=== PATIENT | female | born 1965 | race Caucasian/White ===

== ENCOUNTER 2017-02-08 12:31 | Day surgery (SDC) | payer BC ==
[~2017-02-08 12:31] MED LIST: Buffered Lidocaine 0.9% SYRIN* 5 ML/SYR SYRINGE INTRADERM ONE; Famotidine IV* 10 MG/ML 2 ML (20 mg) IV ONE; Metoclopramide TAB* 10 MG PO ONE
[2017-02-08] MEDS ORDERED: Buffered Lidocaine 0.9% SYRIN* 5 ML/SYR SYRINGE ONE (12:45)
[2017-02-08] MEDS ORDERED: ceFAZolin 2 GM PREMIX (*) 2 GM/50 ML BAG IVPB ONE (12:45)
[2017-02-08] MEDS ORDERED: Metoclopramide TAB* 10 MG ONE (12:45)
[2017-02-08] MEDS ORDERED: Famotidine IV* 10 MG/ML 2 ML (20 mg) ONE (12:45)
[2017-02-08] MEDS ORDERED: Gentamicin ADULT (*) 40 MG/ML VIAL ONE (13:27)
[2017-02-08] MEDS ORDERED: Dexamethasone IV* 4 MG/ML 1 ML (4 MG) ONE (13:27)
[2017-02-08] MEDS ORDERED: Lidocaine 2% PF * 5 ML VIAL ONE (13:27)
[2017-02-08] MEDS ORDERED: Vancomycin(*) 1,000 MG VIAL ONE (13:27)
[2017-02-08] MEDS ORDERED: Propofol* 10 MG/ML 20 ML BTL IV PUSH ONE (13:27)
[2017-02-08] MEDS ORDERED: Lidocaine 1% INJ* 10 MG/ML 30 ML SDV ONE (13:27)
[2017-02-08] MEDS ORDERED: Ondansetron INJ* 2 MG/ML VIAL ONE ×2 (13:27→16:22)
[2017-02-08] MEDS ORDERED: Midazolam* 1 MG/ML 10 ML VIAL (10 MG) ONE (13:27)
[2017-02-08] MEDS ORDERED: KETAMINE HCL* 50 MG/ML 10 ML VIAL ONE (13:27)
[2017-02-08] MEDS ORDERED: fentaNYL* 50 MCG/ML 2 ML VIAL (100 MCG VIAL) ONE (13:27)
[2017-02-08] MEDS ORDERED: Bacitracin IV* 50,000 UNITS INJ ONE (13:28)
[2017-02-08] MEDS ORDERED: Bupivacaine 0.25% SDV* 30 ML ONE (13:28)
[2017-02-08] MEDS ORDERED: ceFAZolin 1 GM VIAL(*) ONE (13:28)
[2017-02-08] MEDS ORDERED: Ketorolac INJ* 30 MG/ML 1 ML VIAL ONE (15:46)
[2017-02-08] MEDS ORDERED: Ondansetron INJ* 2 MG/ML VIAL IV PRN (16:34)
[2017-02-08] MEDS ORDERED: Acetaminophen IV 1GM/100ML * 1,000 MG/100 ML VIAL IVPB ONE (16:34)
[2017-02-08 16:57] VITALS: BP 123/83
--- NOTE | 2017-02-09 00:36 | OP ---
DATE OF OPERATION: 02/08/17 [facility] DATE OF : 63 SURGEON: Mina Hutchison MD OBSTETRICS SCRUB NURSE: None. ANESTHESIA: Local MAC. PRE-OP DIAGNOSIS: Failed back syndrome. POST-OP DIAGNOSIS: Failed back syndrome. OPERATIVE PROCEDURE: Dorsal column stimulator IPG battery change to the Nevro IPG system. INDICATIONS: The patient is a 52-year-old female with history of failed back syndrome, who has had a dorsal column stimulator in place for many, many years. She had her most recent system installed using the [employer], [place] System; however, the paresthesias became intolerable and she was using a higher rate frequency so as not to feel the paresthesias, but the efficacy of that has been wearing off. We had talked about switching her IPGs in the leads that were already in place to the Nevro 10,000 Hz system. The patient wanted to proceed with that, so she is here today for the procedure. We are going to just exchange out her battery for the IPGs in the existing leads. Informed consent was obtained after discussing the risks of bleeding, infection, and failure of the device to work. ESTIMATED BLOOD LOSS: Minimal. DESCRIPTION OF PROCEDURE: The patient was brought to the operating suite, placed supine on the operative table. Her left lower abdomen was prepped and draped in the usual sterile fashion. 15 cc of 1% lidocaine was used for local anesthesia in the inferior aspect of the pocket incision following the previous scar line. Using a scalpel, incision was made down to the pocket and electrocautery was used for hemostasis. The generator and connectors were dissected out using electrocautery Metzenbaum scissors and scalpel blade. I was able to isolate each splitter and the connectors from the lead that we were not going to use were cut leaving the boot over the lead so as to preserve its integrity in case it needs to be used in the future. The other splitter was connected to the Nevro generator and all leads were shown to be working. The generator was then taken off and put on the back table where dissection was done inferiorly using electrocautery and Metzenbaum scissors to create a larger pocket for the new generator. Hemostasis was done with electrocautery. The area was irrigated copiously with antibiotic irrigant. The wound was packed with antibiotic-soaked sponges. The generator was then reconnected and continuity confirmed. The generator was then placed back into the pocket after the sponges were removed and the wound irrigated copiously with antibiotic irrigant. The generator fit easily into the expanded pocket. The wound was then closed with interrupted 2-0 deep Polysorb sutures and a subcuticular 3-0 Monocryl closure was used for the skin. I then infiltrated the wound with 20 cc of 0.5% Marcaine. The Dermabond was used over the incision followed by Steri -Strips, 4x4, sterile dressing, and Tegaderm was placed over the wound. [id number]/[facility] #: [id number] KATHY
== END 2017-02-08 18:00 | disposition home or self-care (01) ==
LOC: OR 12:31
PROVIDERS: ATTEND Anesthesiology Pain Medicine
DX: M96.1 Postlaminectomy syndrome, not elsewhere classified (principal); E04.9 Nontoxic goiter, unspecified
CPT/HCPCS: 88300; A9270-GY; C1820; J0690; J1100; J1580; J1885; J2250; J2405; J2704; J3010; J3370